=== PATIENT | male | born 1985 | race Caucasian/White ===

== ENCOUNTER 2018-07-26 21:39 | Emergency (ER) | payer SELFPAY ==
[2018-07-26 21:43] VITALS: BP 130/76; PULSE 88; RESP 18; TEMP 36.6; O2SAT 99
[2018-07-26 21:44] VITALS: RESP 18
--- NOTE | 2018-07-26 22:02 | ED.GENADUL_ITS ---
Disposition Clinical Impression: Viral syndrome, Pharyngitis Disposition: HOME Condition: Improving Instructions: Pharyngitis (ED), Viral Syndrome (ED) Additional Instructions: Drink plenty of fluids and get plenty of rest. Alternate tylenol or motrin as needed and directed for pain. Stay out of the heat as much as possible for the next few days. Follow-up with your primary care doctor within the next week as needed. Return to the emergency department with any worsening or new concerning symptoms. Medical Decision Making - Lab Data Rapid strep negative Laboratory Tests 07/26/18 07/26/18 22:00 22:00 WBC 11.39 H RBC 4.74 Hgb 14.4 Hct 41.9 MCV 88.4 MCH 30.4 MCHC 34.4 RDW 13.0 Plt Count 234 MPV 10.3 Immature Gran % 0.2 Neutrophils % 74.9 Lymphocytes % 13.2 Monocytes % 11.0 Eosinophils % 0.5 Basophils % 0.2 Absolute Neutrophils 8.53 H Absolute Lymphocytes 1.50 Absolute Monocytes 1.25 H Absolute Eosinophils 0.06 Absolute Basophils 0.02 Sodium 137 Potassium 3.5 Chloride 104 Carbon Dioxide 25.4 Anion Gap 7.6 BUN 10 Creatinine 1.12 Estimated GFR/1.73 m2 >= 60.00 Glucose 100 Calcium 8.3 L - Medical Decision Making 33-year-old male who presents with sore throat since yesterday, generalized weakness, body aches and chills today. Recent exposure to baiz-skeg-bmr-mouth disease the patient denies any rash. He denies fever, headache, neck pain, abdominal pain or urinary symptoms. He admits to his urine being darker today. He states he otherwise has been eating and drinking but has been out of the heat for the past several days working. Vitals within normal limits. Mild posterior pharyngeal erythema with white patches which may be mucus and do not appear consistent with exudates or ulcers. No tonsillar abscess, drooling, submandibular edema, lymphadenopathy and uvula is midline. Lungs clear to auscultation and abdomen soft and nontender. He has no rash noted. I discussed with patient that as his vitals are stable, he has been eating and drinking, he likely can benefit from oral hydration and doubt significant dehydration at this time. however was concerned about patient's weakness and is requesting an IV with IV fluids. As we will place an IV, will check labs to rule out any other acute process. Patient took 2 Aleve 90 minutes ago so we will hold on any Toradol at this time. Will give a bolus IV fluids and dose of Tylenol. Will also check a rapid strep. Differential diagnosis includes viral syndrome vs strep pharyngitis vs mononucleosis. 2214 -- labs reviewed and unremarkable. Strep negative. 2299 -- mono negative. Pt feels much better and is requesting to go home. Patient appears more comfortable and alert. Patient does not have a primary care doctor. He was offered care management to make him an appointment but he states he is traveling back to [place] and will get a primary care doctor there. He is instructed to return with any concerns. History of Present Illness - General Chief complaint: GenMedical Stated complaint: DEHYDRATED Time Seen by Provider: 07/26/18 21:40 Source: patient Mode of arrival: ambulatory Limitations: no limitations - History of Present Illness Initial comments: Patient is a 33-year-old male presents with sore throat since yesterday, body aches and chills and generalized weakness today. Patient states he has been eating and drinking but felt like he required more hydration tonight as he noticed his urine was darker. Patient states he has been in the heat working outside for the past few days which is not the norm for him. Patient denies fever, rash, coughing, vomiting, diarrhea, or neck pain. Patient admits to headache earlier but this was relieved with 2 Aleve 90 minutes ago. Patient states his child was recently diagnosed with tvam-mizw-tea-mouth disease. - Related Data Unknown [No Known Home Meds] 07/26/18 Allergies Allergy/AdvReac Type Severity Reaction Status Date / Time No Known Allergies Allergy Unverified 07/26/18 21:44 Review of Systems Constitutional: chills. denies: fever Eyes: denies: eye pain ENT: throat pain. denies: ear pain, dental pain Respiratory: denies: cough, shortness of breath Cardiovascular: denies: chest pain, dyspnea on exertion Gastrointestinal: denies: abdominal pain, nausea, vomiting, diarrhea Genitourinary: denies: urgency, dysuria, frequency Musculoskeletal: denies: back pain Skin: denies: rash, lesions Neurological: weakness. denies: headache, numbness Past Medical History - Past Medical History Kidney stones Surgical history: other (Rectal surgery as an ) - Social History Smoking status: former smoker Alcohol use: none Drug use: none General Exam - General Limitations: no limitations General appearance: alert, in no apparent distress - Eye Eye exam: Present: PERRL, EOMI - ENT ENT exam: Present: other (mild-moderate posterior pharyngeal erythema with white patches that may be ) - Respiratory Respiratory exam: Present: normal lung sounds bilaterally. Absent: respiratory distress, wheezes, rales, rhonchi, stridor - Cardiovascular Cardiovascular Exam: Present: regular rate, normal rhythm. Absent: bradycardia , tachycardia - GI/Abdominal GI/Abdominal exam: Present: soft, normal bowel sounds. Absent: distended, tenderness, guarding, rebound, rigid - Neurological Exam Neurological exam: Present: alert, oriented X3 - Psychiatric Psychiatric exam: Present: normal affect - Skin Skin exam: Present: warm, dry, intact. Absent: rash Course Vital Signs - 24 hr 07/26/18 07/26/18 21:43 21:44 Temperature 97.9 F Pulse 88 Respiratory 18 18 Rate Blood Pressure 130/76 Pulse Oximetry 99
[2018-07-26] MEDS: Normal Saline 1,000 ML 1000 ML IV (22:03)
[2018-07-26] MEDS: Acetaminophen 325 MG TAB 650 MG PO (22:04)
[2018-07-26 22:07] LABS: Abs Immature Grans 0.02 k/cumm (0.0-0.09); Absolute Basophil Count 0.02 k/cumm (0.0-0.2); Absolute Eosinophil Count 0.06 k/cumm (0.0-0.7); Absolute Monocyte Count 1.25 k/cumm (0.11-0.7); Basophils % 0.2; Eosinophils % 0.5; HCT 41.9 % (40.0-50.0); HGB 14.4 g/dL (13.5-17.5); Immature Grans % 0.2; Lymphocytes % 13.2; Mean Corp. HGB Concentration 34.4 g/dL (32.0-36.0); Mean Corpuscular Hemoglobin 30.4 pg (27.0-33.0); Mean Corpuscular Volume 88.4 fL (80-95); Mean Platelet Volume 10.3 fL (8.0-11.0); Neutrophils % 74.9; Platelet Count 234 x1000/uL (130-400); RBC 4.74 m/cumm (4.50-6.00); White Blood Cell Count 11.39 k/cumm (4.4-10.8)
[2018-07-26 22:12] LABS: Anion Gap 7.6 mmol/L (3-11); BUN 10 mg/dL (7-18); CO2 25.4 mmol/L (21.0-32.0); CREATININE 1.12 mg/dL (0.70-1.30); Calcium 8.3 mg/dL (8.5-10.1); Chloride 104 mmol/L (98-107); Glucose 100 mg/dL (70-100); Potassium 3.5 mmol/L (3.5-5.1); Sodium 137 mmol/L (136-145)
[2018-07-26 22:14] LABS: Absolute Neutrophil Count 8.53 k/cumm (1.2-6.7)
[2018-07-26 22:43] LABS: Mono Screening Negative (Negative)
[2018-07-26 23:17] VITALS: BP 98/52; PULSE 76; RESP 20; TEMP 36.8; O2SAT 98
== END 2018-07-26 23:20 | disposition home or self-care (01) ==
LOC: ER 07-27 10:14
PROVIDERS: Emergency Provider Physician Assistant
DX: J02.8 Acute pharyngitis due to other specified organisms (principal); R53.1 Weakness; M79.1 Myalgia; R68.83 Chills (without fever); B34.9 Viral infection, unspecified
CPT/HCPCS: 36415; 80048; 87880; 96360; 99284; 85025; 86308

== ENCOUNTER 2021-05-05 19:13 | Emergency (ER) | payer SELFPAY ==
[2021-05-05 19:17] VITALS: BP 156/105; PULSE 70; RESP 16; TEMP 36.8; O2SAT 98
--- NOTE | 2021-05-05 19:28 | ED.GENADUL_ITS ---
Discharge Plan Disposition Patient Disposition: HOME Condition: Stable Discharge Details Clinical Impression: Pain, dental Primary Care Provider: Mari,Local ED Provider: Gonzales Nance Home Meds and New Rx's Prescriptions: New amoxicillin-pot clavulanate [Augmentin] 875-125 mg tablet 1 tab PO BID Qty: 14 RF: 0 Continued bupropion HCl 100 mg Tablet 300 mg PO DAILY RF: 0 escitalopram oxalate [Lexapro] 20 mg Tablet 20 mg PO DAILY RF: 0 Discharge Instructions Instructions: Toothache (ED) Additional Instructions: Follow up with your dentist as soon as possible you can take 1000mg tylenol and 600mg ibuprofen every 6 hours for pain as needed return to the emergency department for fevers, difficulty swallowing or breathing or if you feel more ill Medical Decision Making 36 yo male who comes in with left upper dental pain today. he denies any trauma or fevers, swallowing and breathing normally. He localizes the pain to the left upper posterior 2 molars that on exam are eroded, no visible periapical abscess, no submandibular swelling, midline uvula, no restricted neck movements and no facial swelling or pain over the hyoid. Suspect pulpitis, no findings to suggest ludwigs, retropharyngeal abscess or peritonsilar abscess. Will start on augmentin and advised to f/u with dentist and return precautions given Differential Diagnosis Differential Diagnosis: caries, pulpitis, abscess HPI General Mode of arrival: ambulatory . Date/Time Provider Initiated Documentation: 05/05/21 19:14 . Limitations to Documentation: no limitations . Information obtained by: patient . History of Present Illness 36 year old M presents to the emergency department with the chief complaint of dental pain, described as moderate, Quality is described as aching, and is localized to the mouth. Patient reports no radiation. Patient started experiencing this day(s) (1) and it has been constant. No relieving factors improve symptom(s), No exacerbating factors reported . Patient notes no other symptoms.. Related Data Home Medications Medication Instructions Recorded Confirmed amoxicillin-pot clavulanate 1 tab PO BID #14 tab 05/05/21 [Augmentin] bupropion HCl 300 mg PO DAILY 05/05/21 05/05/21 escitalopram oxalate [Lexapro] 20 mg PO DAILY 05/05/21 05/05/21 Previous Rx's Medication Instructions Recorded amoxicillin-pot clavulanate 1 tab PO BID #14 tab 05/05/21 [Augmentin] Allergies Allergy/AdvReac Type Severity Reaction Status Date / Time No Known Allergies Allergy Unverified 05/05/21 19:22 General Stated Complaint: DentalOral MARY JANE: 4 Review of Systems All systems reviewed & are unremarkable except as noted in HPI and below Constitutional Constitutional: Denies chills, Denies fever(s) and Denies weakness ENT Ears, Nose, Mouth, and Throat: Denies change in voice Cardiovascular Cardiovascular: Denies chest pain and Denies dyspnea Respiratory Respiratory: Denies cough and Denies dyspnea Gastrointestinal Gastrointestinal: Denies abdominal pain, Denies nausea and Denies vomiting Neurologic Neurologic: Denies weakness PFSH Social History Smoking/Tobacco Use Status: Never Smoking risk assessment performed?: Yes Alcohol Intake: never Substance use type: does not use Do you feel safe at home: Yes Do you feel safe in your relationship?: Yes Exam Const General: no acute distress Orientation: alert HENMT Head: normal to inspection Ears: external ears normal General nose exam: external nose normal Mouth: moist mucous membranes Eyes General: appearance normal, both eyes and all related structures Neck Neck: normal visual inspection Resp Effort & Inspection: normal respiratory effort and able to speak in complete sentences Cardio Rate: regular rate Skin General skin exam: no rashes or lesions noted Neuro General: patient alert and patient oriented x3 Extrem General: normal to inspection Psych Mental Status: mental status grossly normal Course Vital Signs Vital signs: Vital Signs Temperature 36.8 C 05/05/21 19:17 Pulse 70 05/05/21 19:17 Respiratory Rate 16 05/05/21 19:17 Blood Pressure 156/105 H 05/05/21 19:17 Pulse Oximetry 98 05/05/21 19:17 Temperature 36.8 C 05/05/21 19:17 Temperature Source Skin 05/05/21 19:17 Pulse 70 05/05/21 19:17 Respiratory Rate 16 05/05/21 19:17 Respiratory Effort Non-Labored 05/05/21 19:20 Blood Pressure 156/105 H 05/05/21 19:17 Blood Pressure Position Sitting 05/05/21 19:17 Pulse Oximetry 98 05/05/21 19:17 Oxygen Delivery Method Room Air 05/05/21 19:17 Oxygen Flow Rate 0 05/05/21 19:17 Pain Level 10 05/05/21 19:22
[2021-05-05] MEDS: Amoxicillin 875/Clav. 125 TAB PO (19:35)
[2021-05-05] MEDS: Ketorolac 15 MG/ML VIAL IM (19:35)
[2021-05-05 19:36] VITALS: BP 143/89
== END 2021-05-05 19:35 | disposition home or self-care (01) ==
PROVIDERS: Emergency Provider Emergency Medicine
DX: K08.89 Other specified disorders of teeth and supporting structures (principal)
CPT/HCPCS: 96372; 99284; 99283; J1885